=== PATIENT | female | born 1980 | race African-American/Black ===

== ENCOUNTER 2019-07-08 13:23 | Emergency (ER) | payer SELFPAY ==
[~2019-07-08] VITALS: Ht 162.6 cm; Wt 47.6 kg
[2019-07-08 13:35] VITALS: BP 116/75
--- NOTE | 2019-07-08 13:56 | NUR ---
PT BIB FRIEND S/P "PASSING OUT" AT [employer] 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 PT DENIES PAIN TO HEAD AT THIS TIME, NO BLEEDING NOTED, NO SWELLING,PERRL. PT AWAKE AND ALERT BUT DROWSY. PT C/O ABD PAIN DESCRIBED CRAMPING AND THAT SHE STARTED HER PERIOD YESTERDAY BUT IT IS 2 WEEKS EARLY. PT STATES SHE HAS HEAVY BLEEDING BUT HAS ONLY USED 1 PAD SO FAR TODAY. PT LAYING IN BED, VSS, WILL CONTINUE TO MONITOR. DENIES PMH
--- NOTE | 2019-07-08 15:11 | NUR ---
XR AT BEDSIDE.
--- NOTE | 2019-07-08 15:22 | NUR ---
LAB AT BEDSIDE.
[2019-07-08 15:30] LABS: BASOPHILS % (AUTO) 0.3 % (0.0-2.0); EOSINOPHILS % (AUTO) 0.4 % (0.0-4.0); HEMATOCRIT 39.4 % (36-48); HEMOGLOBIN 13.1 g/dL (12.0-16.0); LYMPHOCYTES % (AUTO) 9.4 % (20.5-51.1); MEAN CORPUSCULAR HEMOGLOBIN 32 pg (27-31); MEAN CORPUSCULAR HGB CONC 33 g/dL (33-37); MEAN CORPUSCULAR VOLUME 95.2 fL (80-94); MONOCYTES # (AUTO) 0.7 K/uL (0.8-1.0); MONOCYTES % (AUTO) 6.2 % (1.7-9.3); NEUTROPHILS # (AUTO) 9.3 K/uL (1.8-7.7); NEUTROPHILS % (AUTO) 83.7 % (42.2-75.2); PLATELET COUNT (AUTO) 260 K/uL (140-450); RED BLOOD CELL COUNT(AUTO) 4.14 MIL/uL (4.20-5.40); RED CELL DISTRIBUTION WIDTH 14.1 % (11.6-13.7); WHITE BLOOD COUNT (AUTO) 11.1 K/uL (4.8-10.8)
[2019-07-08 16:05] LABS: ALBUMIN 3.4 g/dL (3.4-5.0); CREATININE 0.7 mg/dL (0.6-1.3); TOTAL BILIRUBIN 0.7 mg/dL (0.0-1.0)
[2019-07-08 16:17] LABS: BILIRUBIN,URINE 1+ (NEGATIVE); BLOOD, URINE 3+ (NEGATIVE); COLOR,URINE YELLOW (YELLOW); LEUKOCYTE ESTERASE ,URINE TRACE (NEGATIVE); NITRITE, URINE NEGATIVE (NEGATIVE); UGLUCOSE NEGATIVE (NEGATIVE)
[2019-07-08 16:23] LABS: APPEARANCE,URINE HAZY (CLEAR); BARBITURATE, URINE NEG. ng/ml (NEG <=200); BENZODIAZEPINE, URINE NEG. ng/mL (NEG <=200); CANNABINOID, URINE POS. ng/mL (NEG <=50); COCAINE, URINE NEG. ng/mL (NEG <=300); OPIATE, URINE NEG. ng/mL (NEG <=2000); PHENCYCLIDINE SCREEN,URINE NEG. ng/mL (NEG <=25)
[2019-07-08 16:28] LABS: RBC,URINE 0-5 /HPF (0-5)
[2019-07-08 17:00] VITALS: BP 116/75
== END 2019-07-08 17:00 | disposition home or self-care (01) ==
LOC: MED 13:23
DX: R55 Syncope and collapse (principal); N39.0 Urinary tract infection, site not specified; F12.90 Cannabis use, unspecified, uncomplicated; F17.200 Nicotine dependence, unspecified, uncomplicated; R42 Dizziness and giddiness; Z71.6 Tobacco abuse counseling
CPT/HCPCS: 36415; 71045; 80053; 80305; 81001; 81025; 84484; 85025; 87086; 99284; Q0092; 93005